=== PATIENT | female | born 1985 | race Caucasian/White ===

== ENCOUNTER 2017-02-24 16:16 | Emergency (ER) | payer MEDICARE ==
[2017-02-24 18:02] LABS: Bilirubin Negative (Negative); Blood, Urine Trace (Negative); Glucose, Urine (Dipstick) Negative (Negative); Ketone, Urine Negative (Negative); Nitrite Negative (Negative); Protein, Urine (Dipstick) Negative (Neg-Trace); Urobilinogen 0.2 mg/dL (0.2-1.0)
[2017-02-24 18:04] LABS: Bacteria/HPF None Seen HPF (None Seen); Hyaline Casts/LPF 0-3 HYALINE CAST LPF (0-3 Hyaline); Squamous Epithelial 0-3 HPF (0-3); WBC/HPF 21-50 HPF (0-3)
--- OUTSIDE RECORDS SUMMARY | 2017-02-24 18:11 | XMS | Clinical Summary ---
:1985 Author Organization [facility] Address [address] [place] [address] Phone Care Team Providers Name Role Phone , Primary Care Provider Unavailable Allergies Active Allergy Reactions Severity Noted Date Comments Aripiprazole 06/15/2014 Sulfamethoxazole-Trimethoprim 06/15/2014 Cefaclor 06/15/2014 Clindamycin 06/15/2014 Propoxyphene N-Acetaminophen 06/15/2014 Doxycycline 06/15/2014 Ziprasidone Hcl 06/15/2014 Cephalexin 06/15/2014 Lurasidone 01/20/2015 Levofloxacin 06/15/2014 Penicillins 06/15/2014 Sulfa (Sulfonamide Antibiotics) 06/15/2014 Bupropion Hcl 06/15/2014 Current Medications Prescription Sig. Disp. Refills Start Date End Date Status Take 1 tablet by Active [id number] mouth daily. ( VITAMIN) TabIndications:Pregna ncy promethazine Take 1 tablet (25 30 tablet 6 06/21/2014 Active (PHENERGAN) 25 MG mg total) by tablet mouth every 6 (six) hours as needed for Nausea. CITRANATAL ASSURE 35 05/14/2015 Active mg iron-1 mg -50 mg-300 mg CmpkIndications:Vagin al discharge,Abnormal cervical Papanicolaou smear, unspecified abnormal pap finding CHERATUSSIN 100 mg/5 Take 200 mg by 120 mL 0 07/25/2015 Active mL mouth every 4 SyrpIndications:Vagin (four) hours. al discharge,Abnormal cervical Papanicolaou smear, unspecified abnormal pap finding naproxen (NAPROSYN) Take 1 tablet 30 tablet 0 07/28/2015 Active 500 MG tablet (500 mg total) by mouth 2 (two) times daily with breakfast and dinner. mupirocin (BACTROBAN) APPLY A SMALL 44 g 0 08/23/2015 Active 2 % ointment AMOUNT TO AFFECTED AREA THREE TIMES DAILY FOR 7 DAYS montelukast TAKE 1 TABLET BY 30 tablet 0 11/26/2015 Active (SINGULAIR) 10 mg MOUTH NIGHTLY tablet escitalopram oxalate TAKE 1 TABLET BY 30 tablet 0 11/26/2015 Active (LEXAPRO) 20 MG MOUTH DAILY tablet valACYclovir TAKE 1 TABLET BY 90 tablet 0 11/26/2015 Active (VALTREX) 500 MG MOUTH EVERY DAY tablet pantoprazole TAKE 1 TABLET BY 30 tablet 0 12/06/2015 Active (PROTONIX) 40 MG MOUTH EVERY DAY tablet acyclovir (ZOVIRAX) 5 APPLY TO THE 15 g 0 02/20/2016 Active % ointment AFFECTED AREA EVERY 3 HOURS drospirenone-ethinyl Take 1 tablet by 28 tablet 3 02/09/2017 02/09/2018 Active estradiol (TAMANNA, 28,) mouth daily. 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 H/O drug abuse 06/21/2014 Resolved Problems Problem Noted Date Resolved Date 01/20/2015 01/29/2015 High risk due to history of labor 06/21/2014 01/29/2015 Previous section 06/21/2014 01/29/2015 Encounters Date Type Specialty Care Team Description 02/09/2017 Telephone Obstetrics and Gynecology Ezequiel Cameron, Contraception DO from Last 3 Months Immunizations Name Dates Previously Given Next Due Influenza Three-TIV PF 4+YRS 01/24/2015 Tdap 01/24/2015 Family History Relation Name Status Comments Father Alive Mother Alive Social History Tobacco Use Types Packs/Day Years Used Date Current Every Day Smoker Cigarettes 1 15 Smokeless Tobacco: Never Used Alcohol Use Drinks/Week oz/Week Comments No Sex Assigned at Date Recorded Not on file Last Filed Vital Signs Vital Sign Reading Time Taken Blood Pressure 110/74 07/28/2015 7:35 AM CDT Pulse 88 07/28/2015 7:35 AM CDT Temperature 36.4 C (97.6 F) 07/28/2015 7:10 AM CDT Respiratory Rate 18 07/28/2015 7:35 AM CDT Oxygen Saturation 98% 07/28/2015 7:35 AM CDT Inhaled Oxygen Concentration - - Weight 88.9 kg (196 lb) 07/28/2015 7:10 AM CDT Height 165.1 cm (5' 5") 07/28/2015 7:10 AM CDT Body Mass Index 32.62 07/28/2015 7:10 AM CDT Plan of Treatment Health Maintenance Due Date Last Done Comments INFLUENZA VACCINE 01/11/2017 Results Not on filefrom Last 3 Months
[2017-02-24] MEDS ORDERED: cefTRIAXone\\ROCEPHIN 250 MG VIAL ONE (20:18)
[2017-02-24] MEDS ORDERED: predniSONE 20 MG TAB ONE (20:18)
[2017-02-24] MEDS ORDERED: Famotidine 20 MG TAB ONE (20:18)
[2017-02-24] MEDS ORDERED: diphenhydrAMINE 25 MG CAP ONE (20:18)
[2017-02-24] MEDS ORDERED: Azithromycin 250 MG TAB ONE (20:18)
[2017-02-24] MEDS ORDERED: Lidocaine 1% PF 5 ML VIAL ONE (20:19)
[2017-02-24] MEDS ORDERED: Nitrofurantoin Monohyd/M-Cryst 100 MG CAP PO SCH (20:30)
== END 2017-02-24 20:45 | disposition home or self-care (01) ==
LOC: ERS 16:16
DX: N39.0 Urinary tract infection, site not specified (principal); J45.909 Unspecified asthma, uncomplicated; F31.9 Bipolar disorder, unspecified; Z79.899 Other long term (current) drug therapy; Z86.14 Personal history of Methicillin resistant Staphylococcus aureus infection
CPT/HCPCS: 81003; 81015; 81025; 87086; 87480; 87491; 87510; 87591; 87660; 96372; J0696; J2001; J7506

== ENCOUNTER 2017-02-26 14:35 | Emergency (ER) | payer MEDICARE, SELFPAY ==
[2017-02-26 16:34] LABS: Bilirubin Negative (Negative); Blood, Urine Negative (Negative); Glucose, Urine (Dipstick) Negative (Negative); Ketone, Urine Negative (Negative); Nitrite Negative (Negative); Protein, Urine (Dipstick) Negative (Neg-Trace); Urobilinogen 0.2 mg/dL (0.2-1.0)
[2017-02-26 16:37] LABS: Bacteria/HPF None Seen HPF (None Seen); Hyaline Casts/LPF 0-3 HYALINE CAST LPF (0-3 Hyaline); RBC/HPF 0-3 HPF (0-3); Squamous Epithelial 0-3 HPF (0-3)
== END 2017-02-26 16:24 | disposition home or self-care (01) ==
LOC: ERS 14:35
DX: A59.09 Other urogenital trichomoniasis (principal); F31.9 Bipolar disorder, unspecified; Z79.899 Other long term (current) drug therapy
CPT/HCPCS: 81003; 81015; 81025; 99283